=== PATIENT | female | born 1970 | race Caucasian/White ===

== ENCOUNTER 2016-08-19 17:20 | Emergency (ER) | payer OTHER ==
[~2016-08-19] VITALS: Ht 144.8 cm; Wt 86.6 kg
[~2016-08-19 17:20] MED LIST: ALBUTEROL SULF8.5 GM IH; ASPIR 8181 M1 PO; DICLOFENAC SODI75 MG PO; LYRICA75 MG PO; MOTRIN800 MG PO; NAPROSYN500 MG PO; NO HOME MEDS; PERCOCET 5/31 TABLET PO; TAMIFLU75 MG PO; TESSALON200 MG PO
[2016-08-19 17:41] VITALS: BP 114/86
[2016-08-19 18:14] LABS: HEMATOCRIT 41.4 % (36.0-46.0); MCH 26.6 PG (29.0-34.0); MCHC 31.6 G/DL (30.0-36.0); MEAN PLAT.VOLUME 10.6 uM^3 (9.5-12.4); PLATELET COUNT 379 K/uL (156-360); RBC DIS.WIDTH-CV 13.4 % (11.8-14.6); RBC DIS.WIDTH-SD 41.3 % (39-53); RED BLOOD COUNT 4.93 M/uL (3.80-5.20); WHITE BLOOD COUNT 13.5 K/uL (4.1-10.2)
[2016-08-19 18:27] LABS: CHLORIDE 105 mEq/L (99-109); POTASSIUM 4.4 mEq/L (3.7-5.4); SODIUM 140 mEq/L (136-147)
[2016-08-19 18:29] LABS: GLUCOSE 83 mg/dL (70-99)
[2016-08-19 18:31] LABS: ANION GAP 10 MEQ/L (2-14); TOTAL BILIRUBIN 0.2 mg/dL (0.0-1.0)
[2016-08-19 18:33] LABS: ALKALINE PHOSPHATASE 140 IU/L (3-129); GFR ESTIMATE (CALCULATED) > 59 mL/min/
[2016-08-19 18:34] LABS: UREA NITROGEN (BUN) 12 mg/dL (9-23)
[2016-08-19 18:41] LABS: QUANTITATIVE HCG < 4.0 MIU/ML
[2016-08-19 18:57] LABS: ADD MIUA? YES; BILIRUBIN NEGATIVE; BLOOD NEGATIVE; COLOR YELLOW ((YELLOW)); GLUCOSE (STRIP) NEGATIVE; KETONES NEGATIVE; LEUKOCYTES TRACE; NITRITE NEGATIVE; PROTEIN (STRIP) 30; SPECIFIC GRAVITY 1.019 (1.000-1.030); UROBILINOGEN 0.2 MG/DL (0.2-1.0)
[2016-08-19 19:37] LABS: BACTERIA RARE /HPF; EPITHELIAL CELLS 1+ /HPF; MUCUS TRACE /LPF; RED BLOOD CELLS 0-5 /HPF (0-5); UCUL ADDED? NO; WHITE BLOOD CELLS 0-5 /HPF (0-5)
== END 2016-08-19 20:17 | disposition home or self-care (01) ==
LOC: RME 17:20 → EME 17:20 → RME 20:17
DX: R10.31 Right lower quadrant pain (principal); K59.00 Constipation, unspecified; F17.200 Nicotine dependence, unspecified, uncomplicated; Z87.442 Personal history of urinary calculi
CPT/HCPCS: 74000; 80053; 81003; 84702; 85027; 99281; 99284

== ENCOUNTER 2017-08-24 22:30 | Emergency (ER) | payer BC ==
[~2017-08-24] VITALS: Ht 144.8 cm; Wt 83.0 kg
[2017-08-24 23:20] LABS: HEMATOCRIT 43.2 % (36.0-46.0); HEMOGLOBIN 14.3 G/DL (11.9-15.5); MCH 29.1 PG (29.0-34.0); MCHC 33.1 G/DL (30.0-36.0); MCV 87.8 FL (83-99); RBC DIS.WIDTH-CV 13.2 % (11.8-14.6); RBC DIS.WIDTH-SD 42.7 % (39-53); RED BLOOD COUNT 4.92 M/uL (3.80-5.20); WHITE BLOOD COUNT 16.9 K/uL (4.1-10.2)
[2017-08-24 23:39] LABS: ALBUMIN 4.1 g/dL (3.2-4.8)
[2017-08-24 23:40] LABS: CHLORIDE 104 mEq/L (99-109); POTASSIUM 3.9 mEq/L (3.7-5.4); SODIUM 139 mEq/L (136-147)
[2017-08-24 23:42] LABS: GLUCOSE 76 mg/dL (70-99); TOTAL PROTEIN 7.1 g/dL (6.4-8.3)
[2017-08-24 23:44] LABS: TOTAL BILIRUBIN 0.3 mg/dL (0.0-1.0)
[2017-08-24 23:45] LABS: ALKALINE PHOSPHATASE 152 IU/L (3-129)
[2017-08-24 23:46] LABS: CREATININE 0.8 mg/dL (0.6-1.3); GFR ESTIMATE (CALCULATED) > 59 mL/min/
[2017-08-24 23:47] LABS: AST (GOT) 14 IU/L (2-34); UREA NITROGEN (BUN) 13 mg/dL (9-23)
[2017-08-24 23:48] LABS: ALT (GPT) 16 IU/L (3-49)
[2017-08-24 23:49] LABS: LIPASE 33 U/L (1.0-51.0)
[2017-08-25 00:05] LABS: APPEARANCE CLEAR ((CLEAR)); BILIRUBIN NEGATIVE; BLOOD SMALL; COLOR YELLOW ((YELLOW)); GLUCOSE (STRIP) NEGATIVE; KETONES NEGATIVE; LEUKOCYTES NEGATIVE; NITRITE NEGATIVE; PROTEIN (STRIP) NEGATIVE; SPECIFIC GRAVITY 1.027 (1.000-1.030); UROBILINOGEN 0.2 MG/DL (0.2-1.0)
[2017-08-25 00:14] LABS: BACTERIA NONE SEEN /HPF; CALCIUM OXALATE CRYSTALS 2+ /HPF; EPITHELIAL CELLS 1+ /HPF; MUCUS TRACE /LPF; UCUL ADDED? NO; WHITE BLOOD CELLS 0-5 /HPF (0-5)
[2017-08-25 00:18] LABS: PLAT.SUFFICIENCY ADEQUATE; PLATELET COUNT 359 K/uL (156-360)
[2017-08-25] MEDS ORDERED: BENTYL20 MG PO (02:03)
[2017-08-25] MEDS ORDERED: NORCO 5/3251 TABLET PO (02:03)
[2017-08-25 02:33] VITALS: BP 92/52
== END 2017-08-25 02:38 | disposition home or self-care (01) ==
LOC: EME 22:30
DX: R31.9 Hematuria, unspecified (principal); N20.0 Calculus of kidney; Z87.442 Personal history of urinary calculi; N83.201 Unspecified ovarian cyst, right side; G89.29 Other chronic pain; M54.9 Dorsalgia, unspecified; F17.200 Nicotine dependence, unspecified, uncomplicated; Z79.82 Long term (current) use of aspirin; Z90.710 Acquired absence of both cervix and uterus
CPT/HCPCS: 74177; 80053; 81003; 83690; 85027; 99281; 99285; J2405; J3010